=== PATIENT | male | born 1950 | race Caucasian/White ===

== ENCOUNTER 2017-03-16 23:22 | Emergency (ER) | payer OTHER ==
[~2017-03-16] VITALS: Ht 175.3 cm; Wt 95.5 kg
[~2017-03-16 23:22] MED LIST: CAR8A PO; LOSA100T29 PO; SERT50TA9 PO
[2017-03-16 23:26] VITALS: BP 157/80; PULSE 49; RESP 16; O2SAT 99
[2017-03-17 00:42] VITALS: BP 131/81; PULSE 57; RESP 16; O2SAT 98
[2017-03-17 01:05] LABS: BASOPHILS % (AUTO) 0.5 % (0-3); EOSINOPHILS % (AUTO) 1.2 % (0-5); MONOCYTES % (AUTO) 5.3 % (4-12); Mean Corpuscular Volume 85.6 fL (81-100); NEUTROPHILS % (AUTO) 71.3 % (40-74); Platelet Count 181 bil/L (150-400)
[2017-03-17 01:07] LABS: APPEARANCE,URINE CLEAR (CLEAR,HAZY); COLOR,URINE YELLOW (YELLOW); OCCULT BLOOD,URINE NEGATIVE (NEGATIVE); UROBILINOGEN,URINE NORMAL (NORMAL)
--- NOTE | 2017-03-17 01:13 | ED.REPORT ---
HPI-Abd Pain M 40 and Over Date of Service Mar 17, 2017 ED Provider: Nicholas Ga MD Pt is a 67 y/o male with a history of hypertension who presents to the ED via EMS c/o vomiting onset 1300 this afternoon with the last episode 2 hours ago. Additional symptoms include left ear pain and dizziness. He denies diarrhea, abdominal pain, chest pain, back pain, SOB, or hematemesis. Nursing Notes Stated Complaint: NAUSEA/VOMITING Chief Complaint: General Complaint Nursing Notes Reviewed: Yes Allergies: Coded Allergies: No Known Allergies (Verified Allergy, Unknown, 07/21/15) Scheduled Amoxicillin (Amoxicillin) 500 Mg Tablet 500 MG PO TID Doxazosin (Cardura) 8 Mg Tablet 8 MG PO HS Losartan Potassium (Losartan Potassium) 100 Mg Tablet 100 MG PO DAILY Sertraline HCl (Sertraline) 50 Mg Tablet 50 MG PO DAILY Scheduled PRN Ondansetron (Zofran) 4 Mg Tablet 4 MG PO Q4H PRN PRN For Nausea General Time Seen by MD: 01:12 Chief Complaint Other (vomiting) Hx Obtained From: Patient, Spouse Arrived By: Ambulance Sudden in Onset?: No Onset Occurred: 9 - 12 hours ago Severity: Current: Moderate Severity: Maximum: Severe Recent Healthcare: No recent doctor visit, No recent hospitalization Similar Sx Previous: No Risk Factors )( AAA Risk Stratification Hypertension Risk factors reviewed Past Medical History Past Medical History Hypertension Anxiety BPH Otherwise healthy Past Surgical History left knee repair nasal repair throat repair testicle removal Reports: Appendectomy Smoking History Never Smoker Social History Other Social History: Good social support, , Local resident Ambulatory Status Independent Review of Systems Respiratory: Denies: Shortness of breath Cardiovascular: Denies: Chest pain GI: Reports: Vomiting, Denies: Abdominal pain, Diarrhea, Hematemesis Musculoskeletal: Denies: Back pain Complete sys rev & neg: except as marked. Eyes: Reports: Eye pain left Neurologic: Reports: Dizziness Physical Exam Initial Vital Signs Vital Signs (First) Date Time Temp Pulse Resp B/P Pulse Ox O2 Delivery O2 Flow Rate FiO2 03/16/17 23:26 36.8 49 16 157/80 99 03/17/17 00:42 Room Air Initial VS: Reviewed Neck: Supple, Full range of motion Extremities: Vascular intact, Neuro intact, No swelling, No tenderness Skin: Warm, Dry, No cyanosis Neurologic: Alert, Oriented, Nonfocal Psychiatric: Mood/affect normal, Behavior normal, Normal thought content General/Constitutional: Awake, Alert Respiratory / Chest: Atraumatic, Breath sounds NL, Breath sounds = bilat, No respiratory distress Cardiovascular: Heart rate NL, Heart sounds NL, No murmurs Heart Rate / Rhythm: Positive: Bradycardia Abdomen: Soft, Non-tender Back: Inspection NL, Full range of motion Head / Eyes: Atraumatic, Normocephalic Fluid present in bilateral TMs L TM intact, slight erythema Neurologic: Oriented X3, No motor deficits, No sensory deficits, CN II - XII intact Normal finger-nose test bilaterally Normal heel-vallejo test bilaterally Interpretation & Diagnostics Lab Results Interpretation Result Diagram: 03/17/17 0102 03/17/17 0102 Test 03/17/17 00:44 03/17/17 01:02 03/17/17 01:17 Urine Color Yellow (YELLOW) Urine Appearance Clear (CLEAR,HAZY) Urine pH 6.0 (5.0-8.0) Urine Specific [place] 1.020 (1.003-1.035) Urine Protein Negativemg/dL (NEG,TRACE) Urine Glucose (UA) Negativemg/dL (NEGATIVE) Urine Ketones Negativemg/dL (NEGATIVE) Urine Occult Blood Negative (NEGATIVE) Urine Nitrite Negative (NEGATIVE) Urine Bilirubin Negative (NEGATIVE) Urine Urobilinogen Normalmg/dL (NORMAL) Urine Leukocyte Esterase Negative (NEGATIVE) Urine RBC 0-2/hpf (0-2) Urine WBC 0-5/hpf (0-5) Urine Epithelial Cells None/hpf (NONE-MOD) Urine Crystals None seen (NONE SEEN) Urine Bacteria None/hpf (NONE-FEW) Urine Hyaline Casts None/lpf (NONE) Urine Granular Casts None seen (NONE SEEN) Urine Waxy Casts None seen (NONE SEEN) Urine Red Blood Cell Casts None seen (NONE SEEN) Urine White Blood Cell Casts None seen (NONE SEEN) Urine Mucus Present (None Seen) Urine Trichomonas None seen (NONE SEEN) Urine Yeast None (NONE SEEN) Urinalysis Comment None Urine Culture Reflexed Not indicated White Blood Count 9.6th/mm3 (3.8-10.1) Red Blood Count 5.36mil/mm3 (4.40-5.80) Hemoglobin 16.1g/dL (13.8-17.2) Hematocrit 45.9% (41.0-50.0) Mean Corpuscular Volume 85.6fL (81-100) Mean Corpuscular Hemoglobin 30.0pg (27.0-35.0) Mean Corpuscular Hemoglobin Concent 35.1% (32.0-37.0) Red Cell Distribution Width 13.5% (12.3-15.4) Platelet Count 181bil/L (150-400) Neutrophils (%) (Auto) 71.3% (40-74) Lymphocytes (%) (Auto) 18.9% (14-46) Monocytes (%) (Auto) 5.3% (4-12) Eosinophils (%) (Auto) 1.2% (0-5) Basophils (%) (Auto) 0.5% (0-3) Sodium Level 139mEq/L (134-144) Potassium Level 3.9mEq/L (3.5-5.2) Chloride Level 101mEq/L (97-108) Carbon Dioxide Level 22mmol/L (18-29) Blood Urea Nitrogen 18mg/dL (8-27) Creatinine 0.90mg/dL (0.76-1.27) Estimat Glomerular Filtration Rate 90mL/min (>59) Glucose Level 197mg/dL (60-99) Calcium Level 9.0mg/dL (8.5-10.1) Magnesium Level 2.2mg/dL (1.6-2.6) Total Bilirubin 0.5mg/dL (0.0-1.2) Aspartate Amino Transf (AST/SGOT) 18U/L (0-50) Alanine Aminotransferase (ALT/SGPT) 22U/L (0-44) Alkaline Phosphatase 65U/L (25-160) Total Protein 7.1g/dL (6.4-8.4) Albumin 4.4g/dL (3.4-5.0) Lipase 26U/L (13-60) Hold Purple Top Tube Received (Received) Hold Blue Top Tube Received (Received) Hold [place] Top Tube Received (Received) Re-Eval/Medical Decision Med Decision/Clinical Course 67-year-old male presenting with dizziness earlier today and 9 episodes of vomiting. His nausea vomiting resolved with Zofran. His dizziness resolved prior to arrival. He had no focal neurological deficits. His abdomen was soft and nontender. Vital signs are stable other than some asymptomatic bradycardia. We will send patient home with Zofran to use as needed. He will follow-up with his primary doctor tomorrow for follow-up on this condition as well as reevaluation of his bradycardia. He is not on a beta kolton. Return precautions given. Source of Hx: Old records Time of Eval: 02:08 Patient Status: Condition improved Re-Evaluation/Progress Note: Pt rechecked. Discussed plan for discharge. Pt agrees and understands plan. Gave all RTER and follow-up directions. All questions addresssed at this time. Counseled Regarding: Diagnosis, Lab results, Need for follow-up, When/why to return to ED Discharge & Departure Primary Impression: Vomiting Vomiting type: unspecified Vomiting Intractability: unspecified Nausea presence: unspecified Qualified Code: R11.10 - Vomiting, unspecified Additional Impressions: Dizziness Left acute otitis media Bradycardia Disposition: Home Vital Signs - All Vital Signs Date Time Temp Pulse Resp B/P Pulse Ox O2 Delivery O2 Flow Rate FiO2 03/17/17 02:43 36.8 56 14 169/87 100 Room Air 03/17/17 02:02 55 13 181/97 98 Room Air 03/17/17 00:42 57 16 131/81 98 Room Air 03/16/17 23:26 36.8 49 16 157/80 99 )( All Prior VS Reviewed: Yes Condition: Stable Additional Instructions: Your labs today were unremarkable. Your heart rate is slow, but this does not appear to be the cause of your symptoms. Your dizziness has resolved, and you are stable for discharge home. Take antibiotics as prescribed for your left ear infection. Take Zofran as needed for nausea. Follow-up with your primary care doctor tomorrow for recheck, and for a referral to a ramp flight attendant for your slow heart rate. Return to the emergency department if you have any nausea, vomiting, diarrhea, abdominal pain, blood in stool, dizziness, visual changes, speech changes, difficulty swallowing, numbness/tingling, weakness, or any new or worsening symptoms. Referrals: Kamaljit Rider MD (PCP) Scribe Attestation Portions of this note were transcribed by Rosibel Edwards. I, Dr. Ga personally performed the history, physical exam and medical decision-making; I reviewed and confirmed the accuracy of the information in the transcribed note. copies to: Kamaljit Rider MD, Ben M MD Mar 17, 2017 01:13 Rosibel Edwards Mar 17, 2017 01:20
[2017-03-17] MEDS ORDERED: Ondansetron 2 mg/mL 2 mL Inj IVPUSH PRN (01:20)
[2017-03-17] MEDS ORDERED: 0.9% Sodium Chloride 1,000 ML IV ONE (01:20)
[2017-03-17 01:32] LABS: Magnesium 2.2 mg/dL (1.6-2.6)
[2017-03-17 02:02] VITALS: BP 181/97; PULSE 55; RESP 13; O2SAT 98
[2017-03-17] MEDS ORDERED: ONDA4TAB6 PO (02:09)
[2017-03-17] MEDS ORDERED: AMOX500T2 PO (02:09)
[2017-03-17 02:43] VITALS: BP 169/87; PULSE 56; RESP 14; O2SAT 100
== END 2017-03-17 02:44 | disposition home or self-care (01) ==
LOC: EDBD 23:22 → SED 23:22
DX: R11.10 Vomiting, unspecified (principal); R42 Dizziness and giddiness; H66.92 Otitis media, unspecified, left ear; R00.1 Bradycardia, unspecified; I10 Essential (primary) hypertension; F41.9 Anxiety disorder, unspecified
CPT/HCPCS: 36415; 80053; 81000; 83690; 83735; 85025; 93005; 96361; 96374; 99285; J2405; J7030